=== PATIENT | female | born 1980 | race Caucasian/White ===

== ENCOUNTER → 2020-06-24 | Outpatient (CLI) | payer OTHER | LOC: EXRD 06-22 10:00 | DX: R00.2 Palpitations (principal); I49.3 Ventricular premature depolarization; K76.0 Fatty (change of) liver, not elsewhere classified; K82.4 Cholesterolosis of gallbladder | CPT/HCPCS: 76700 ==

== ENCOUNTER → 2020-10-13 | Outpatient (CLI) | payer OTHER | LOC: KOH-I 12:58 | DX: M25.551 Pain in right hip (principal); M25.552 Pain in left hip; Z18.89 Other specified retained foreign body fragments | CPT/HCPCS: 73522 ==

== ENCOUNTER → 2021-04-18 | Outpatient (CLI) | payer BC | LOC: KOH-I 14:53 | DX: R06.02 Shortness of breath (principal) | CPT/HCPCS: 71046 ==

== ENCOUNTER → 2021-06-28 | Outpatient (CLI) | payer BC | LOC: EXRD 08:50 | DX: K76.0 Fatty (change of) liver, not elsewhere classified (principal); K82.4 Cholesterolosis of gallbladder | CPT/HCPCS: 76700 ==